=== PATIENT | female | born 1975 | race Hispanic/Latino ===

== ENCOUNTER 2017-08-10 18:51 | Inpatient (IN) | payer MEDICAID, SELFPAY ==
[2017-08-10] MEDS ORDERED: diphenhydrAMINE 50 MG/ML VIAL ONE (19:14)
[2017-08-10] MEDS ORDERED: Dexamethasone 4 mg/ml Vial ONE (19:14)
[2017-08-10] MEDS ORDERED: Ondansetron HCl/PF 4 MG/2 ML Vial ONE (19:28)
[2017-08-10] MEDS ORDERED: Acetaminophen 500 MG TAB ONE (20:19)
[2017-08-10 20:32] LABS: Mean Corpuscular HGB CONC 32.4 g/dL (32.0-36.0); Mean Corpuscular Hemoglobin 23.3 pg (27.0-31.0); Mean Corpuscular Volume 71.8 fl (81.0-99.0); Mean Platelet Volume 8.5 fL (7.4-10.4); Platelet Count 372 thou/uL (130-400); RBC Distribution Width 15.2 % (11.5-14.5); Red Blood Cell (RBC) Count 4.72 mill/uL (4.20-5.40); White Blood Cell (WBC) Count 20.7 thou/uL (4.8-10.8)
[2017-08-10 20:38] LABS: ALT (SGPT) 13 U/L (8-55); AST (SGOT) 17 U/L (5-34); Albumin 4.3 g/dL (3.5-5.0); Alkaline Phosphatase 118 U/L (40-150); Anion Gap 19 mmol/L (10-20); BUN (Urea Nitrogen) 9 mg/dL (7.0-18.7); Bilirubin, Total 0.5 mg/dL (0.2-1.2); Calc. Creatinine Clearance 0 mL/min (70-130); Calcium 9.2 mg/dL (7.8-10.44); Carbon Dioxide 19 mmol/L (22-29); Chloride 100 mmol/L (98-107); Estimated GFR-MDRD Greater than 90; Globulin 4.4 g/dL (2.4-3.5); Glucose 116 mg/dL (70-105); Potassium 3.7 mmol/L (3.5-5.1); Protein, Total 8.7 g/dL (6.0-8.3); Sodium 134 mmol/L (136-145)
[2017-08-10 20:50] LABS: Band 5 % (5-11); Hypochromia SLIGHT = 6-15 cells (100X) (0-5/hpf); Lymphocytes 9 % (21-51); MDiff Complete? YES; Microcytosis SLIGHT = 6-15 cells (100X) (0-5/hpf); Monocytes 1 % (0-10); Neutrophil 85 % (42-75); PLT Morphology Comment Appears Adequate
[2017-08-10 21:59] LABS: Pregnancy Test - Urine (BHCG) Negative (Negative); Pregu Control Background? CLEAR/WHITE (CLR/WHITE); Pregu Control Bar Appear? YES (CONTROL BAR)
[2017-08-10 22:04] LABS: Bilirubin Negative (Negative); Clarity Hazy (Clear); Glucose, Urine (Dipstick) Negative (Negative); Leukocyte Small (Negative); Nitrite Negative (Negative); Protein, Urine (Dipstick) Negative (Neg-Trace); Urobilinogen 0.2 mg/dL (0.2-1.0)
[2017-08-10 22:05] LABS: Bacteria/HPF 2+ HPF (None Seen); Hyaline Casts/LPF 0-3 HYALINE CAST LPF (0-3 Hyaline); Pathc Cast-AUWi Flag 0.67 (0-2.49)
[2017-08-10 22:11] LABS: Blood, Urine Trace (Negative); Crystals/HPF None Seen HPF (Negative); RBC/HPF 0-3 HPF (0-3); Yeast-All Forms None Seen HPF (None Seen)
[2017-08-11 00:31] LABS: Lactic Acid 2.4 mmol/L (0.5-2.2)
[2017-08-11] MEDS ORDERED: Famotidine/PF 20 mg/2ml Vial ONE (00:42)
[2017-08-11] MEDS ORDERED: Ondansetron HCl/PF 4 MG/2 ML Vial ONE (00:53)
[2017-08-11 03:22] LABS: #Basophils 0.1 thou/uL (0.0-0.2); #Lymphocytes 0.8 thou/uL (1.20-3.40); #Monocytes 0.5 thou/uL (0.11-0.59); #Neutrophils 17.9 thou/uL (1.40-6.50); %Basophils 0.6 % (0.0-1.0); %Eosinophils 0.2 % (0.0-10.0); %Lymphocytes 4.1 % (21.0-51.0); %Monocytes 2.4 % (0.0-10.0); %Neutrophils 92.8 % (42.0-75.0); Hemoglobin 10.9 g/dL (12.0-16.0); Mean Corpuscular HGB CONC 31.6 g/dL (32.0-36.0); Mean Corpuscular Hemoglobin 22.4 pg (27.0-31.0); Mean Corpuscular Volume 70.8 fl (81.0-99.0); Mean Platelet Volume 7.9 fL (7.4-10.4); Platelet Count 340 thou/uL (130-400); RBC Distribution Width 15.3 % (11.5-14.5); Red Blood Cell (RBC) Count 4.85 mill/uL (4.20-5.40); White Blood Cell (WBC) Count 19.3 thou/uL (4.8-10.8)
[2017-08-11 03:24] LABS: BHCG - Serum Negative (NEGATIVE); Pregs Control Background? CLEAR/WHITE (CLR/WHITE); Pregs Control Bar Appear? YES (CONTROL BAR)
[2017-08-11 03:32] LABS: Anion Gap 12 mmol/L (10-20); BUN (Urea Nitrogen) 6 mg/dL (7.0-18.7); Calc. Creatinine Clearance 0 mL/min (70-130); Calcium 8.1 mg/dL (7.8-10.44); Carbon Dioxide 21 mmol/L (22-29); Chloride 108 mmol/L (98-107); Estimated GFR-MDRD Greater than 90; Glucose 208 mg/dL (70-105); Potassium 3.9 mmol/L (3.5-5.1); Sodium 137 mmol/L (136-145)
[2017-08-11] MEDS ORDERED: diphenhydrAMINE 50 MG/ML VIAL ONE (05:49)
--- NOTE | 2017-08-11 07:44 | HP ---
PRIMARY CARE PHYSICIAN: The patient does not have a PCP. She is a city call. CHIEF COMPLAINT: Fevers and itching with swelling of her face. HISTORY OF PRESENT ILLNESS: This is a 41-year-old female with a minimal past medical history who pre sents after waking up this morning with a completely swollen face that was also very itchy. She is p rominently English speaking and her daughter is with her today who provides most of the history as e daughter resides with the patient. It appears that the patient woke up this morning, has no prior similar episodes. She endorses having redness, swelling, and itching that started with her face extended down through her arms and her leilani k. Has not extended down through her legs, it is mostly in the torso and head and upper extremities. Since admission to the emergency department, the patient feels that the swelling in her face has go ne down, the itching is still prominent and the itching has also extended from her back to her stomac h on the front and her pelvis on the front as well. The patient denies any prior similar episodes in the past. REVIEW OF SYSTEMS: As per HPI. Constitutional: Endorses having fevers, no chills, no significant w eight loss or gain over the last 2 weeks. HEENT: No new headaches or vision changes, swelling, so t he patient has difficulty opening her eyes. The patient denies any stridor or difficulty breathing. States that she has some discomfort with swallowing at this point in time that was also new as of . Cardiovascular: No chest pressure, no chest pain, no left-sided arm numbness or tinglin g. Respiratory: No overt shortness of breath, although she has some dyspnea on exertion today. No cough, no congestion, no postnasal drip. Gastrointestinal: No nausea, no vomiting, no abdominal juany n. However, due to the difficulty with p.o. intake with swallowing, the patient has not eaten much t teresita. Denies any recent diarrhea or constipation. Musculoskeletal: No new myalgias or arthralgias. The remainder of the review of systems otherwise negative. PAST MEDICAL HISTORY: As per above. PAST SURGICAL HISTORY: As per above. HOME MEDICATIONS: The patient takes vitamins and has ibuprofen, docusate, ferrous sulfate a nd Bronte as needed. The patient has not had any change to this regimen. FAMILY HISTORY: No known family history of angioedema, medicine allergic reaction or difficulty with breathing. SOCIAL HISTORY: The patient denies any alcohol, tobacco or illicit drug use. She endorses wishes to be FULL CODE at this point in time. Denies any known sick contacts. No pets at home. PHYSICAL EXAMINATION: GENERAL: The patient is awake, alert, lying in the bed, conversant. HEENT: Lightly moist mucous membranes. The patient's eyelids are very swollen and puffy, it is diff icult to assess. Pupils, she is unable to open her eyes completely. At this point in time, she has an erythematous almost a reticular type pattern that is scattered throughout her face. Nonblanchable and they are all pruritic. There is no coalescing type pattern along through her back throughout ci rcumferentially around her bilateral upper extremities and currently at this point in time appear to spare the central aspect of her abdomen, but it is prominent under her breast had in her inguinal reg ion. The patient also has accompanied bilateral upper extremity swelling to accompany this as well, but no pitting pedal edema. CARDIOVASCULAR: S1, S2. No murmurs, rubs or gallops. EXTREMITIES: Pulses 2+ bilateral upper extremity. RESPIRATORY: Reasonable air movement. No wheezes, rales or rhonchi. Clear to auscultation bilatera lly. ABDOMEN: Positive bowel sounds. Soft, nontender to palpation. MUSCULOSKELETAL: Able to move all 4 extremities. Of note, is unable to completely close her right u pper extremity. Hand, unable to make a fist at this point in time. LABORATORY DATA AND IMAGING: WBC 20.7, hemoglobin 11.0, hematocrit 33.9, platelets 372. Sodium 134, potassium 3.7, chloride 100, bicarbonate 19, BUN 9, creatinine 0.62, glucose 160, lactic acid 3.2, c alcium 9.2, total bilirubin 0.5, AST 17, ALT 13, alkaline phosphatase 118, total protein 8.7, albumin 4.3. UA is significant for trace blood, small, leukoesterase, 11-20 wbc's, 2+ bacteria, group A str ep throat is negative. ASSESSMENT AND PLAN: A 41-year-old female who presents with fevers. 1. Sepsis. At this point in time, the patient meets criteria for sepsis, most likely origin is urin e. At this point in time, blood cultures are pending. The patient has been started on empiric antib iotics and has received ceftriaxone in the emergency department. 2. Urticarial reaction, it is unclear exactly where this reaction is coming from. The patient is cu rrently strep negative. She has received dexamethasone, diphenhydramine and famotidine in the emerge ncy department. We will check a tryptase level. Continue to closely monitor the patient's respirato ry status. The patient will be going to the IMCU. I appreciate critical care involvement and naz wilson for aid in management. 3. Diet: N.p.o. The patient may be allowed a regular diet when her dysphagia is improved, which I suspect to be related to her urticarial reaction. 4. Activity: As tolerated. 5. Deep venous thrombosis prophylaxis, enoxaparin. 6. Leukocytosis with neutrophilia, likely secondary to infectious etiology as discussed prior septic shock as above. 7. Elevated lactate appears to be improving and clearing with appropriate empiric antibiotics and se psis protocol initiation. Admit the patient inpatient IMCU. Thank you for asking me to care for the patient. Greater than 30 minutes critical care time spent coordinating care for the patient today.
[2017-08-11] MEDS: diphenhydrAMINE 50 MG/ML VIAL IVP SCH ×3 (08:17→21:30)
[2017-08-11] MEDS: cefTRIAXone\\ROCEPHIN 2 GM in Sodium Chloride 0.9% 100 ML IVPB SCH (08:17)
[2017-08-11 08:26] VITALS: BMI 31.6
[2017-08-11] MEDS ORDERED: Famotidine/PF 20 mg/2ml Vial SLOW IVP SCH (09:00)
[2017-08-11] MEDS: predniSONE 20 MG TAB PO SCH (10:19)
[2017-08-11] MEDS: Enoxaparin Sodium 30 MG/0.3 ML SYRINGE SC SCH (10:19)
[2017-08-11] MEDS: Famotidine 40 MG/4 ML VIAL SLOW IVP SCH ×2 (10:19→21:30)
[2017-08-12] MEDS: cefTRIAXone\\ROCEPHIN 2 GM in Sodium Chloride 0.9% 100 ML IVPB SCH (02:43)
[2017-08-12 05:20] LABS: #Lymphocytes 2.3 thou/uL (1.20-3.40); #Monocytes 1.3 thou/uL (0.11-0.59); #Neutrophils 12.4 thou/uL (1.40-6.50); %Basophils 0.1 % (0.0-1.0); %Eosinophils 0.2 % (0.0-10.0); %Lymphocytes 14.5 % (21.0-51.0); %Monocytes 8.1 % (0.0-10.0); %Neutrophils 77.2 % (42.0-75.0); Hemoglobin 9.5 g/dL (12.0-16.0); Mean Corpuscular HGB CONC 31.9 g/dL (32.0-36.0); Mean Corpuscular Hemoglobin 22.9 pg (27.0-31.0); Mean Corpuscular Volume 71.6 fl (81.0-99.0); Mean Platelet Volume 7.7 fL (7.4-10.4); Platelet Count 337 thou/uL (130-400); RBC Distribution Width 15.3 % (11.5-14.5); Red Blood Cell (RBC) Count 4.14 mill/uL (4.20-5.40)
[2017-08-12 05:33] LABS: Anion Gap 11 mmol/L (10-20); BUN (Urea Nitrogen) 9 mg/dL (7.0-18.7); Calc. Creatinine Clearance 151 mL/min (70-130); Calcium 8.6 mg/dL (7.8-10.44); Carbon Dioxide 26 mmol/L (22-29); Chloride 107 mmol/L (98-107); Estimated GFR-MDRD Greater than 90; Glucose 146 mg/dL (70-105); Potassium 3.5 mmol/L (3.5-5.1); Sodium 140 mmol/L (136-145)
[2017-08-12] MEDS: diphenhydrAMINE 50 MG/ML VIAL IVP SCH ×3 (05:56→20:48)
[2017-08-12] MEDS: predniSONE 20 MG TAB PO SCH (09:20)
[2017-08-12] MEDS: Enoxaparin Sodium 30 MG/0.3 ML SYRINGE SC SCH (09:20)
[2017-08-12] MEDS: Famotidine 40 MG/4 ML VIAL SLOW IVP SCH ×2 (09:21→20:49)
--- NOTE | 2017-08-12 14:05 | PDOC.PN ---
- Subjective Encounter Start Date: 08/12/17 Encounter Start Time: 14:04 CC: Sepsis sub: pt says she feels better - Objective Resuscitation Status: Resuscitation Status FULL:Full Resuscitation Vital Signs & Weight: Vital Signs (12 hours) Temp Pulse Resp BP Pulse Ox 08/12/17 12:32 98.1 F 83 14 116/75 93 L 08/12/17 08:00 98.0 F 88 16 92 L 08/12/17 07:32 98.0 F 88 16 108/70 92 L 08/12/17 04:00 97.7 F 78 16 93/59 L 95 Weight Weight 162 lb 4.8 oz I&O: 08/11/17 08/12/17 08/13/17 06:59 06:59 06:59 Intake Total 600 Balance 600 Result Diagrams: 08/12/17 04:48 08/12/17 04:49 Phys Exam - Physical Examination Constitutional: NAD HEENT: moist MMs Neck: no JVD Respiratory: no wheezing, no rales, no rhonchi Cardiovascular: RRR, no significant murmur, no rub Gastrointestinal: soft, non-tender, no distention Musculoskeletal: no edema Neurological: non-focal, moves all 4 limbs Psychiatric: normal affect Skin: no rash Dx/Plan - Plan * . Pt is 41 yrs old female 1. Sepsis 2. UTI 3. Mild Metabolic acidosis 4. DVT & GI prophyalxis plan: cultures no growth seen will check cbc in am. WBC count improving Continue IV rocephin 1gm q24hrs continue lovenox 40mg subq daily case d/w pt & RN
[2017-08-13] MEDS: cefTRIAXone\\ROCEPHIN 2 GM in Sodium Chloride 0.9% 100 ML IVPB SCH (03:09)
[2017-08-13 04:34] LABS: #Eosinphils 0.1 thou/uL (0.0-0.7); #Lymphocytes 3.5 thou/uL (1.20-3.40); #Monocytes 0.9 thou/uL (0.11-0.59); #Neutrophils 8.3 thou/uL (1.40-6.50); %Basophils 0.1 % (0.0-1.0); %Eosinophils 0.7 % (0.0-10.0); %Lymphocytes 27.5 % (21.0-51.0); %Monocytes 6.7 % (0.0-10.0); %Neutrophils 64.9 % (42.0-75.0); Hemoglobin 9.2 g/dL (12.0-16.0); Mean Corpuscular HGB CONC 32.2 g/dL (32.0-36.0); Mean Corpuscular Hemoglobin 23.6 pg (27.0-31.0); Mean Corpuscular Volume 73.1 fl (81.0-99.0); Mean Platelet Volume 7.9 fL (7.4-10.4); Platelet Count 331 thou/uL (130-400); RBC Distribution Width 15.2 % (11.5-14.5); Red Blood Cell (RBC) Count 3.92 mill/uL (4.20-5.40); White Blood Cell (WBC) Count 12.7 thou/uL (4.8-10.8)
[2017-08-13 04:45] LABS: Anion Gap 12 mmol/L (10-20); BUN (Urea Nitrogen) 11 mg/dL (7.0-18.7); Calc. Creatinine Clearance 154 mL/min (70-130); Calcium 8.4 mg/dL (7.8-10.44); Carbon Dioxide 27 mmol/L (22-29); Chloride 105 mmol/L (98-107); Estimated GFR-MDRD Greater than 90; Glucose 124 mg/dL (70-105); Potassium 3.7 mmol/L (3.5-5.1); Sodium 140 mmol/L (136-145)
[2017-08-13] MEDS: diphenhydrAMINE 50 MG/ML VIAL IVP SCH ×2 (05:37→15:45)
[2017-08-13 08:29] VITALS: BP 130/70; TEMP 97.7
[2017-08-13] MEDS: predniSONE 20 MG TAB PO SCH (08:44)
[2017-08-13] MEDS: Enoxaparin Sodium 30 MG/0.3 ML SYRINGE SC SCH (08:46)
[2017-08-13] MEDS: Famotidine 40 MG/4 ML VIAL SLOW IVP SCH (10:54)
[2017-08-14 14:19] LABS: Tryptase 55.2 ug/L (2.2-13.2)
== END 2017-08-13 18:21 | disposition home or self-care (01) | DRG 872 ==
LOC: ERS 18:51 → ERHOLD 08-11 01:03 → IMCU/EMU 08-11 01:04 → T4-B 08-11 21:51
PROVIDERS: ADMIT Internal Medicine; ATTEND Internal Medicine
DX: A41.9 Sepsis, unspecified organism (principal); N39.0 Urinary tract infection, site not specified; Z88.8 Allergy status to other drugs, medicaments and biological substances
CPT/HCPCS: 36415; 80048; 80053; 81003; 81015; 81025; 83519; 83605; 84703; 85025; 87040; 87081; 87086; 87430; 93005; 96361; 96374; 96375; 96376; A4216; J0696; J1100; J1200; J1650; J2405; J7050; J7506; S0028

== ENCOUNTER 2021-02-20 13:11 | Emergency (ER) | payer SELFPAY ==
[2021-02-20 15:43] LABS: #Lymphocytes 1.9 thou/uL (1.20-3.40); #Monocytes 0.6 thou/uL (0.11-0.59); #Neutrophils 11.5 thou/uL (1.40-6.50); %Basophils 0.2 % (0.0-1.0); %Eosinophils 0.3 % (0.0-10.0); %Lymphocytes 13.3 % (21.0-51.0); %Neutrophils 82.2 % (42.0-75.0); Hemoglobin 11.1 g/dL (12.0-16.0); Mean Corpuscular HGB CONC 32.3 g/dL (32.0-36.0); Mean Corpuscular Hemoglobin 22.3 pg (27.0-31.0); Mean Platelet Volume 8.3 fL (7.4-10.4); Platelet Count 396 thou/uL (130-400); Red Blood Cell (RBC) Count 4.98 mill/uL (4.20-5.40); White Blood Cell (WBC) Count 13.9 thou/uL (4.8-10.8)
[2021-02-20 16:04] LABS: ALT (SGPT) 14 U/L (8-55); AST (SGOT) 13 U/L (5-34); Albumin 4.1 g/dL (3.5-5.0); Alkaline Phosphatase 83 U/L (40-110); Anion Gap 13 mmol/L (10-20); BUN (Urea Nitrogen) 10 mg/dL (7.0-18.7); Bilirubin, Total 0.4 mg/dL (0.2-1.2); Calc. Creatinine Clearance 0 mL/min (70-130); Calcium 9.4 mg/dL (7.8-10.44); Carbon Dioxide 26 mmol/L (22-29); Chloride 102 mmol/L (98-107); Glucose 136 mg/dL (70-105); Potassium 4.2 mmol/L (3.5-5.1); Protein, Total 8.1 g/dL (6.0-8.3); Sodium 137 mmol/L (136-145)
[2021-02-20 16:10] LABS: MDiff Complete? YES; Microcytosis MODERATE=15-30 cells (100X) (0-5/hpf); Platelet Morphology Comment Appears Adequate; Polychromasia SLIGHT = 2-3 cells (100X) (0-2/hpf)
[2021-02-20] MEDS ORDERED: Metoclopramide HCl 10 MG/2 ML VIAL ONE (16:38)
[2021-02-20] MEDS ORDERED: Ketorolac Tromethamine 30 MG/ML VIAL ONE (16:38)
[2021-02-20] MEDS ORDERED: diphenhydrAMINE 50 MG/ML VIAL ONE (16:38)
== END 2021-02-20 17:56 | disposition home or self-care (01) ==
LOC: ERS 13:11
DX: R51.9 Headache, unspecified (principal); E11.9 Type 2 diabetes mellitus without complications; Z79.84 Long term (current) use of oral hypoglycemic drugs
CPT/HCPCS: 36415; 80053; 85025; 96365; 96375; J1200; J1885; J2765

== ENCOUNTER 2022-01-22 16:43 | Inpatient (IN) | payer SELFPAY ==
[2022-01-22 17:19] LABS: Hemoglobin 9.3 g/dL (12.0-16.0); Mean Corpuscular HGB CONC 32.5 g/dL (32.0-36.0); Mean Corpuscular Hemoglobin 20.8 pg (27.0-31.0); Mean Corpuscular Volume 64.2 fL (78.0-98.0); Mean Platelet Volume 9.6 fL (7.4-10.4); Platelet Count 332 thou/uL (130-400); RBC Distribution Width 14.9 % (11.5-14.5); Red Blood Cell (RBC) Count 4.44 mill/uL (4.20-5.40); White Blood Cell (WBC) Count 20.4 thou/uL (4.8-10.8)
[2022-01-22 17:28] LABS: BHCG - Serum Negative (NEGATIVE); Pregs Control Background? CLEAR/WHITE (CLR/WHITE); Pregs Control Bar Appear? YES (CONTROL BAR)
[2022-01-22 17:39] LABS: ALT (SGPT) 18 U/L (8-55); AST (SGOT) 24 U/L (5-34); Albumin 3.9 g/dL (3.5-5.0); Alkaline Phosphatase 83 U/L (40-110); Anion Gap 19 mmol/L (10-20); BUN (Urea Nitrogen) 8 mg/dL (7.0-18.7); Bilirubin, Total 0.7 mg/dL (0.2-1.2); Calc. Creatinine Clearance 0 mL/min (70-130); Calcium 8.7 mg/dL (7.8-10.44); Carbon Dioxide 18 mmol/L (22-29); Chloride 104 mmol/L (98-107); Estimated GFR 112; Globulin 3.6 g/dL (2.4-3.5); Glucose 180 mg/dL (70-105); Potassium 3.6 mmol/L (3.5-5.1); Protein, Total 7.5 g/dL (6.0-8.3); Sodium 137 mmol/L (136-145)
[2022-01-22 17:44] LABS: Band 21 % (5-11); Eosinophils 3 % (0-10); Lymphocytes 3 % (21-51); MDiff Complete? YES; Microcytosis MODERATE=15-30 cells (100X) (0-5/hpf); Monocytes 1 % (0-10); Neutrophil 69 % (42-75); Platelet Morphology Comment Appears Adequate; Polychromasia SLIGHT = 2-3 cells (100X) (0-2/hpf); Reactive Lymphocytes 3 % (0-10); Reflex for Review?? YES; Stomatocytes SLIGHT = 2-5 cells (100X) (0-1/hpf); Target Cells SLIGHT = 2-5 cells (100X) (0-1/hpf)
[2022-01-22] MEDS ORDERED: Morphine 4 MG/ML VIAL ONE (18:34)
[2022-01-22] MEDS ORDERED: Ketorolac Tromethamine 30 MG/ML VIAL ONE (18:35)
[2022-01-22] MEDS ORDERED: Ondansetron PF 4 MG/2 ML Vial ONE (18:35)
[2022-01-22 20:32] LABS: Bacteria/HPF 4+ HPF (None Seen); Bilirubin Negative (Negative); Blood, Urine Negative (Negative); Clarity Clear (Clear); Glucose, Urine (Dipstick) Normal (Negative); Ketone, Urine Trace mg/dL (Negative); Leukocyte 75 Leu/uL (Negative); Nitrite 2+ (Negative); Protein, Urine (Dipstick) Negative (Neg-Trace); RBC/HPF 0-3 HPF (0-3); Specific Gravity, Urine 1.007 (1.002-1.036); Urobilinogen Normal mg/dL (Less than 2); pH, Urine 5.5 (5.0-9.0)
[2022-01-22] MEDS ORDERED: cefTRIAXone\\ROCEPHIN 1 GM VIAL ONE (21:56)
[2022-01-22] MEDS ORDERED: Bisacodyl 5 MG TAB PO PRN (22:51)
[2022-01-22] MEDS ORDERED: Ondansetron PF 4 MG/2 ML Vial IVP PRN (22:51)
[2022-01-22] MEDS ORDERED: Loperamide HCl 2 MG CAP PO PRN (22:51)
[2022-01-22] MEDS ORDERED: Dextrose 5% in Water 1,000 ML IV PRN (22:51)
[2022-01-22] MEDS ORDERED: Dextrose 50% Abboject 50 ML SYRINGE SLOW IVP PRN (22:51)
[2022-01-22] MEDS ORDERED: Zolpidem Tartrate 5 MG TAB PO PRN (22:51)
[2022-01-22] MEDS ORDERED: HumaLOG 300 UNITS/3 ML VIAL SC PRN ×2 (22:53)
[2022-01-22] MEDS ORDERED: Morphine 2 MG/ML VIAL SLOW IVP PRN (22:54)
[2022-01-22] MEDS ORDERED: hydrALAZINE 20 MG/ML VIAL SLOW IVP PRN ×2 (22:54→23:04)
[2022-01-22] MEDS ORDERED: Sodium Chloride 0.9% 1,000 ML IV SCH (23:00)
[2022-01-22] MEDS ORDERED: Tamsulosin HCl 0.4 MG CAP PO SCH (23:15)
[2022-01-23] MEDS: Lactated Ringer's 1,000 ML IV SCH ×3 (00:07→19:36)
[2022-01-23 01:52] VITALS: BMI 30.4
[2022-01-23 05:26] LABS: #Eosinphils 0.2 thou/uL (0.0-0.7); #Lymphocytes 2.3 thou/uL (1.20-3.40); #Monocytes 1.4 thou/uL (0.11-0.59); #Neutrophils 15.4 thou/uL (1.40-6.50); %Basophils 0.2 % (0.0-1.0); %Eosinophils 0.8 % (0.0-10.0); %Lymphocytes 11.9 % (21.0-51.0); %Neutrophils 80.1 % (42.0-75.0); Hemoglobin 8.3 g/dL (12.0-16.0); Mean Corpuscular Hemoglobin 20.3 pg (27.0-31.0); Mean Corpuscular Volume 65.4 fL (78.0-98.0); Mean Platelet Volume 8.3 fL (7.4-10.4); Platelet Count 311 thou/uL (130-400); White Blood Cell (WBC) Count 19.3 thou/uL (4.8-10.8)
[2022-01-23 05:46] LABS: ALT (SGPT) 13 U/L (8-55); AST (SGOT) 15 U/L (5-34); Albumin 3.3 g/dL (3.5-5.0); Alkaline Phosphatase 63 U/L (40-110); Anion Gap 12 mmol/L (10-20); BUN (Urea Nitrogen) 7 mg/dL (7.0-18.7); Bilirubin, Total 0.4 mg/dL (0.2-1.2); Calc. Creatinine Clearance 152 mL/min (70-130); Calcium 8.3 mg/dL (7.8-10.44); Carbon Dioxide 23 mmol/L (22-29); Chloride 106 mmol/L (98-107); Estimated GFR 114; Globulin 3.1 g/dL (2.4-3.5); Glucose 123 mg/dL (70-105); Potassium 3.8 mmol/L (3.5-5.1); Protein, Total 6.4 g/dL (6.0-8.3); Sodium 137 mmol/L (136-145)
[2022-01-23] MEDS: Famotidine 20 MG TAB PO SCH ×2 (08:43→19:36)
[2022-01-23] MEDS: metFORMIN 500 MG TAB PO SCH ×2 (08:43→17:50)
[2022-01-23] MEDS ORDERED: Cefepime 1 GM in Sodium Chloride 0.9% 100 ML IVPB SCH (09:00)
[2022-01-23] MEDS ORDERED: Enoxaparin Sodium 40 MG/0.4 ML SYRINGE SC SCH (09:30)
[2022-01-23] MEDS: Tamsulosin HCl 0.4 MG CAP PO SCH (19:36)
[2022-01-23] MEDS: Cefepime 2 GM in Sodium Chloride 0.9% 100 ML IVPB SCH (19:36)
[2022-01-23] MEDS: Morphine 2 MG/ML VIAL SLOW IVP PRN (23:54)
[2022-01-24] MEDS: Lactated Ringer's 1,000 ML IV SCH ×3 (04:39→20:51)
[2022-01-24 05:44] LABS: Iron 15 ug/dL (50-170); Iron Binding Capacity, Total 318 mcg/dL (265-497)
[2022-01-24] MEDS ORDERED: Enoxaparin Sodium 30 MG/0.3 ML SYRINGE SC SCH (09:00)
[2022-01-24] MEDS: Enoxaparin Sodium 40 MG/0.4 ML SYRINGE SC SCH (09:02)
[2022-01-24] MEDS: metFORMIN 500 MG TAB PO SCH ×2 (09:02→16:26)
[2022-01-24] MEDS: Famotidine 20 MG TAB PO SCH ×2 (09:02→20:52)
[2022-01-24] MEDS: Morphine 2 MG/ML VIAL SLOW IVP PRN (09:03)
[2022-01-24] MEDS: Cefepime 2 GM in Sodium Chloride 0.9% 100 ML IVPB SCH ×2 (09:03→20:51)
[2022-01-24 09:59] LABS: #Eosinphils 0.1 thou/uL (0.0-0.7); #Lymphocytes 1.5 thou/uL (1.20-3.40); #Neutrophils 7.7 thou/uL (1.40-6.50); %Basophils 0.3 % (0.0-1.0); %Eosinophils 0.6 % (0.0-10.0); %Lymphocytes 14.9 % (21.0-51.0); %Monocytes 9.9 % (0.0-10.0); %Neutrophils 74.2 % (42.0-75.0); Hemoglobin 7.7 g/dL (12.0-16.0); Mean Corpuscular HGB CONC 30.9 g/dL (32.0-36.0); Mean Corpuscular Hemoglobin 20.2 pg (27.0-31.0); Mean Corpuscular Volume 65.3 fL (78.0-98.0); Mean Platelet Volume 8.6 fL (7.4-10.4); Platelet Count 328 thou/uL (130-400); RBC Distribution Width 14.9 % (11.5-14.5); White Blood Cell (WBC) Count 10.3 thou/uL (4.8-10.8)
[2022-01-24 10:10] LABS: Anion Gap 12 mmol/L (10-20); BUN (Urea Nitrogen) 8 mg/dL (7.0-18.7); Calc. Creatinine Clearance 144 mL/min (70-130); Calcium 8.5 mg/dL (7.8-10.44); Carbon Dioxide 23 mmol/L (22-29); Chloride 105 mmol/L (98-107); Estimated GFR 113; Glucose 136 mg/dL (70-105); Potassium 3.4 mmol/L (3.5-5.1); Sodium 137 mmol/L (136-145)
[2022-01-24 10:39] LABS: Hypochromia MODERATE=16-30 cells (100X) (0-5/hpf); MDiff Complete? YES; Microcytosis MODERATE=15-30 cells (100X) (0-5/hpf); Platelet Morphology Comment Appears Adequate; Polychromasia SLIGHT = 2-3 cells (100X) (0-2/hpf)
[2022-01-24] MEDS: Tamsulosin HCl 0.4 MG CAP PO SCH (20:52)
[2022-01-25] MEDS: Lactated Ringer's 1,000 ML IV SCH (06:41)
[2022-01-25 07:14] VITALS: BP 134/78; TEMP 98.5
[2022-01-25] MEDS: metFORMIN 500 MG TAB PO SCH (08:40)
[2022-01-25] MEDS: Famotidine 20 MG TAB PO SCH (08:40)
[2022-01-25] MEDS: Cefepime 2 GM in Sodium Chloride 0.9% 100 ML IVPB SCH (08:40)
[2022-01-25] MEDS: Enoxaparin Sodium 40 MG/0.4 ML SYRINGE SC SCH (08:41)
== END 2022-01-25 16:38 | disposition home or self-care (01) | DRG 690 ==
LOC: ERS 16:43 → MSONC 22:03 → OBSVTOIN 22:03
PROVIDERS: ADMIT Internal Medicine; ATTEND Internal Medicine
DX: N13.6 Pyonephrosis (principal); E87.2 Acidosis; E11.9 Type 2 diabetes mellitus without complications; Z20.822 Contact with and (suspected) exposure to COVID-19; D50.9 Iron deficiency anemia, unspecified; Z79.899 Other long term (current) drug therapy; Z98.890 Other specified postprocedural states
CPT/HCPCS: 36415; 36416; 74176; 76770; 80048; 80053; 81003; 81015; 83540; 83550; 83605; 83690; 84703; 85025; 85060; 87040; 87077; 87086; 87186; 96365; 96367; 96375; 96376; G0378; J0692; J0696; J1650; J1885; J1956; J2270; J2405; J3490; J7120; U0003; U0005